=== PATIENT | female | born 1980 | race Hispanic/Latino ===

== ENCOUNTER 2023-03-23 08:05 | Outpatient (CLI) | payer BC ==
[2023-03-23] MEDS ORDERED: Iopamidol 370 76% 100 ML VIAL ONE (14:13)
== END 2023-03-23 08:06 | disposition home or self-care (01) ==
LOC: BICCT 08:05
PROVIDERS: ATTEND Family Medicine
DX: K42.9 Umbilical hernia without obstruction or gangrene (principal); R19.8 Other specified symptoms and signs involving the digestive system and abdomen
CPT/HCPCS: 74177; 82565; Q9967